=== PATIENT | male | born 1985 | race African-American/Black ===

== ENCOUNTER 2018-05-25 06:50 | Emergency (ER) | payer OTHER, MEDICAID ==
[2018-05-25] MEDS ORDERED: ACETAMINOPHEN 325 MG TABLET PO ONE (08:21)
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
[2018-05-25] MEDS ORDERED: IBUPROFEN 600 MG TABLET PO ONE (08:58)
[2018-05-25 09:17] VITALS: BP 179/124
== END 2018-05-25 09:27 | disposition home or self-care (01) ==
LOC: ER 06:50
DX: S00.83XA Contusion of other part of head, initial encounter (principal); R51 Headache; K08.89 Other specified disorders of teeth and supporting structures; R68.84 Jaw pain; J34.89 Other specified disorders of nose and nasal sinuses; R22.0 Localized swelling, mass and lump, head; V49.9XXA Car occupant (driver) (passenger) injured in unspecified traffic accident, initial encounter; Y93.84 Activity, sleeping; I10 Essential (primary) hypertension; F12.10 Cannabis abuse, uncomplicated; J45.909 Unspecified asthma, uncomplicated; Z88.8 Allergy status to other drugs, medicaments and biological substances; Z91.018 Allergy to other foods; Z87.891 Personal history of nicotine dependence
CPT/HCPCS: 70450; 70486; 99284

== ENCOUNTER 2018-05-29 19:45 | Emergency (ER) | payer MEDICAID, OTHER ==
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
[2018-05-29] MEDS ORDERED: OXYCODONE-ACETAMINOPHEN 5-325 MG TABLET PO ONE (21:19)
[2018-05-29] MEDS ORDERED: ONDANSETRON 4 MG TAB.RAPDIS PO ONE (21:19)
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
[2018-05-29] MEDS ORDERED: HYDROCODONE/ACETAMINOPHEN 5-325 MG TABLET PO ONE (23:39)
[2018-05-29] MEDS ORDERED: HYDROCODONE/ACETAMINOPHEN 5-325 MG (6 TAB/ER DISP) PO PRN (23:39)
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
[2018-05-30 00:19] VITALS: BP 150/98
== END 2018-05-30 00:39 | disposition home or self-care (01) ==
LOC: ER 19:45
DX: S06.0X9A Concussion with loss of consciousness of unspecified duration, initial encounter (principal); S00.83XA Contusion of other part of head, initial encounter; S20.229A Contusion of unspecified back wall of thorax, initial encounter; S01.511A Laceration without foreign body of lip, initial encounter; R07.9 Chest pain, unspecified; M54.9 Dorsalgia, unspecified; R42 Dizziness and giddiness; R11.0 Nausea; Y00.XXXA Assault by blunt object, initial encounter
CPT/HCPCS: 99284; 70450; 70486; 71250; 72125; L0120; S0119